=== PATIENT | male | born 1955 | race Caucasian/White ===

== ENCOUNTER → 2019-12-06 | Outpatient (CLI) | payer MEDICARE, OTHER ==
--- NOTE | 2019-12-06 12:50 | XR ---
EXAMINATION TYPE: XR KUB DATE OF EXAM: 12/06/2019 Comparison: None Clinical History: 64-year-old male check for kidney stones of bladder, urinary retention, N20.0 Findings: Supine imaging limited for assessment of free air. Nonobstructive bowel gas pattern. Only mild stool in the right side of the abdomen. Bowel content partially obscures the renal shadows. Small calcifica tions of pelvis suggestive of pelvic fluid lips. Degenerative changes throughout the lumbar spine and mild within both hips. Impression: Calcifications in the pelvis likely represent phleboliths. Bowel content largely obscures the renal s hadows.
== END | disposition home or self-care (01) ==
LOC: RADXRMAIN 11:20
PROVIDERS: ATTEND Urology
DX: N20.0 Calculus of kidney (principal)
CPT/HCPCS: 74018

== ENCOUNTER → 2020-12-19 | Outpatient (CLI) | payer MEDICARE, OTHER ==
--- NOTE | 2020-12-19 15:05 | XR ---
EXAMINATION TYPE: XR knee 4V LT DATE OF EXAM: 12/19/2020 CLINICAL HISTORY: pain TECHNIQUE: 4 views of the left knee are obtained. COMPARISON: None. FINDINGS: There is no acute fracture/dislocation. The tri-compartment joint spaces appear within no rmal limits. The overlying soft tissue appears unremarkable. IMPRESSION: There is no acute fracture or dislocation ICD 10 NO FRACTURE, INITIAL EVALUATION
== END | disposition home or self-care (01) ==
LOC: RADXRMAIN 14:30
PROVIDERS: ATTEND Physician Assistant
DX: M25.562 Pain in left knee (principal)

== ENCOUNTER 2021-05-23 09:56 | Day surgery (SDC) | payer MEDICARE ==
[2021-05-21 15:33] VITALS: BMI 25.2
[~2021-05-23 09:56] MED LIST: LACTATED RINGERS 1,000 ML IV SCH; LIDOCAINE 1% (10MG/ML) FOR IV START INTRADERMA PRN
[2021-05-23 10:53] VITALS: TEMP 97.2
--- NOTE | 2021-05-23 11:56 | P.GSHP ---
History of Present Illness H&P Date: 05/23/21 Chief Complaint: Screening colonoscopy This is a 66-year-old male presents safe for screening colonoscopy. Patient denies a significant GI complaints. Past Medical History Past Medical History: Hypertension History of Any Multi-Drug Resistant Organisms: None Reported Additional Past Surgical History / Comment(s): COLONOSCOPY. LITHOTRIPIES. BACK INJECTIONS Past Anesthesia/Blood Transfusion Reactions: No Reported Reaction Past Psychological History: No Psychological Hx Reported Smoking Status: Never smoker Past Alcohol Use History: Occasional Past Drug Use History: None Reported - Past Family History Father Family Medical History: Cancer Mother Family Medical History: Cancer Sister(s) Family Medical History: Cancer Medications and Allergies Home Medications Medication Instructions Recorded Confirmed Type lisinopriL [Zestril] 5 mg PO HS 05/21/21 05/21/21 History Allergies Allergy/AdvReac Type Severity Reaction Status Date / Time No Known Allergies Allergy Verified 05/21/21 15:29 Surgical - Exam Vital Signs Temp Pulse Resp BP Pulse Ox 97.2 F L 75 20 149/71 98 05/23/21 10:51 05/23/21 10:51 05/23/21 10:51 05/23/21 10:51 05/23/21 10:51 - General well developed, well nourished, no distress - Eyes PERRL - ENT normal pinna - Neck no masses - Respiratory normal expansion - Cardiovascular Rhythm: regular - Abdomen Abdomen: soft, non tender Assessment and Plan Assessment: We'll perform screening colonoscopy
[2021-05-23] MEDS ORDERED: PROPOFOL 10 MG/ML 20 ML VIAL IV ONE (12:03)
[2021-05-23] MEDS ORDERED: IV FLUID CONTINUATION 1,000 ML IV ONE (12:18)
--- NOTE | 2021-05-23 12:18 | P.OP ---
Date of Procedure: 05/23/21 Preoperative Diagnosis: Screening colonoscopy Postoperative Diagnosis: Diverticulosis Procedure(s) Performed: Colonoscopy Anesthesia: MAC Surgeon: Feliz Rosado Pathology: none sent Condition: stable Disposition: PACU Description of Procedure: The patient's placed on the endoscopy table in the lateral position. He received IV sedation. Digital rectal exam was performed which revealed no abnormalities. The colonoscope was then placed patient anus the colonoscope was then passed throughout the entire colon. The ileocecal valve sutures. The cecum, ascending and transverse colon appeared normal. The descending and sigmoid colon had extensive diverticular changes. The rectum appeared normal. The scope was withdrawn from patient.
[2021-05-23 12:52] VITALS: BP 117/72; PULSE 73; RESP 18
== END 2021-05-23 13:11 | disposition home or self-care (01) ==
LOC: ORWHC2ENDO 09:56
PROVIDERS: ATTEND Surgery
DX: Z12.11 Encounter for screening for malignant neoplasm of colon (principal); K57.30 Diverticulosis of large intestine without perforation or abscess without bleeding; I10 Essential (primary) hypertension; Z98.890 Other specified postprocedural states; Z80.9 Family history of malignant neoplasm, unspecified; Z79.899 Other long term (current) drug therapy; Z87.442 Personal history of urinary calculi
CPT/HCPCS: J2704; G0121; 45378